=== PATIENT | male | born 1970 | race Caucasian/White ===

== ENCOUNTER 2016-11-19 10:50 | Day surgery (SDC) | payer OTHER ==
[~2016-11-19] VITALS: Ht 170.2 cm; Wt 72.6 kg
[2016-11-19] VITALS (10 sets, daily range): BP systolic 116–146; BP diastolic 74–83; PULSE 54–82; RESP 10–18; O2SAT 97–100
--- NOTE | 2016-11-19 07:37 | PCM.HPANE ---
Patient Data Surgeon Admitting Provider: Attending Provider:Skyla Doll MD Primary Care Physician:Ion Other Provider:Chen Sandoval Anesthesia Reason for Visit Left Ureteral Stone Ht/WT & BMI Height (Feet): 5 Height (Inches): 7 Weight (Kilograms): 77.564 Body Mass Index 26.00 Allergies Coded Allergies: No Known Allergies (Verified Allergy, Unknown, 11/18/16) Past Anesthesia History Anesthesia History: Denies:: Anesthesia Reactions, Malignant Hyperthermia Diabetes History Hx Diabetes?: No MRSA MRSA: No Medications Hypertension Medication: No Home Meds Incl Beta Lorena: No Reported Medications Acetaminophen 325 Mg [id number] Mg PO Q4H PRN For Headache Ref 0 11/19/16 Tamsulosin (Flomax)0.4 Mg Capsule0.4 Mg PO DAILY Ref 0 11/18/16 oxyCODONE-Acetaminophen 5-325 mg 1 Each Tablet2 Tab PO Q4H PRN For Pain Ref 0 11/18/16 Ondansetron (Zofran)8 Mg Tablet8 Mg PO Q8H PRN For Nausea 11/18/16 Discontinued Scripts [Oxycodone Hcl] (Roxycodone)5 MG TABLET No Conflict Check5 Mg PO Q4H PRN For Pain #40 TABLET Prov:Salvador Vasquez MD 11/14/14 History History of ENT Problems?: No Hx of Heart Problems?: No Cardiovascular History: Denies:: Heart Murmur Hypertension Hx of Respiratory Problem?: No Respiratory History: Denies:: Use of C-PAP Machine Hx Neurologic Problems?: No Hx of GI Problems?: Yes Gastrointestinal History: Positive for:: Gall Bladder Disease (S/P VITALY W/ UMBILICAL HERNIA RPR) Hx of Problems?: Yes Genitourinary History: Positive for:: Kidney Stones (HX OF PASSING 1 PRIOR STONE LT URETERAL STONE=CURRENT PROBLEM) Other Pertinent History: C/OF LT FLANK & GROIN PAIN,DECREASED URINARY STREAM Male Hx: Denies:: Prostate Problems Scrotal Mass Testicular Surgery Skin History: Denies:: History Skin Disorders? Pressure Ulcers Hx Musculoskeletal Problems?: Yes Musculoskeletal History: Positive for:: Back Injury (spinal injections in 2003 no problems since) Musculoskeletal Trauma (S/P B/L DISTAL BICEP TENDON RPR'S) Hx of Psycho/Social Problems?: No Hx Surgeries?: Yes (bilat distal bicep tendon repair,VITALY/UMBILICAL HERNIA RPR ,NIDIA'S) Hx Any Other Health Problems?: Yes Other History: Denies:: Cancer Endocrine Disease Hospitalization Thyroid Disease History Blood Transfusions: Denies:: Blood Transfusions Hx Diabetes: No Hx Alcohol Use: YesAlcoholic Drinks Per Day: 2-3/WEEKHx Substance Use: No Smoking Status: Never Smoker Have You Smoked inLast 12 mo: No Stop/Bang S-Snoring: Do You Snore Loudly: No T-Tired: feel tired, fatigued: No O-Obsered: Observed not breath: No P-Blood Pressure: treated: No B- Body Mass Index > 35 kg/m2: No N- Neck Large Circumference: No G- Gender Male: Yes SHAUNNA Risk Assessment: Low Risk, <3 Yes Risk Assessment Category Category 1A: Patient has history of documented sleep apnea, and HAS NOT received any narcotic, sedative or anesthesia administration during this stay. Category 1B: Patient has history of documented sleep apnea, and HAS received any narcotic , sedative or anesthesia administration during this stay Category 2: Patient has SUSPECTED Obstructive Sleep Apnea, and HAS received any narcotic , sedative or anesthesia administration during this stay. Category 3: Patient has SUSPECTED Obstructive Sleep Apnea and HAS NOT received narcotic, sedative or anesthesia administration during this stay. Category 4: Outpatient in Procedural Areas with known sleep apnea or who screen positive for High Risk via the STOP/BANG questionnaire. Exam Exam General Appearance: Alert, Oriented X3, Cooperative, No Acute Distress HEENT/AIRWAY: MP 1 Lungs: Normal Air Movement Heart: Exam Unremarkable Plan Impression Patient chart reviewed, patient interviewed and anesthestic plan with risks, benefits, and alternatives discussed, and informed consent obtained. NPO Status: 11/13/14 0430 ASA Physical Status: ASA1 Normal Healthy Anesthetic Plan: GA Bene/Risks/Altern/Consents: Yes HP Complete Prior to Induction: Yes Rafal Washington MD Nov 19, 2016 07:37
[2016-11-19] MEDS: Lactated Ringer's 1,000 ML IV SCH ×3 (09:40→13:28)
[~2016-11-19 10:50] MED LIST: CeFAZolin 2 Gm/50 mL D5W IV Premix IV ONE; OXYC1TAB24 PO; TAMS0.4C98 PO; ZOF8 PO
[2016-11-19] MEDS ORDERED: Rocuronium 10 mg/mL 5 mL Inj ONE (10:51)
[2016-11-19] MEDS ORDERED: Dexamethasone 4 mg/mL Inj ONE (10:51)
[2016-11-19] MEDS ORDERED: Ondansetron 2 mg/mL 2 mL Inj ONE (10:51)
[2016-11-19] MEDS ORDERED: Glycopyrrolate 0.2 mg/mL 5 mL Inj ONE (10:51)
[2016-11-19] MEDS ORDERED: Neostigmine 1 mg/mL 5 mL Inj ONE (10:51)
[2016-11-19] MEDS ORDERED: fentaNYL-PF 50 mCg/mL 2 mL Inj ONE ×2 (10:51→11:44)
[2016-11-19] MEDS ORDERED: Propofol 10,000 mCg/mL 20 mL Inj ONE (10:51)
[2016-11-19] MEDS ORDERED: ACET325T51 PO (11:05)
[2016-11-19] MEDS ORDERED: CeFAZolin 2 Gm/50 mL D5W Duplex Bag IV ONE (11:09)
[2016-11-19] MEDS ORDERED: HYDROmorphone 0.5 mg/0.5 mL iSecure Syringe IVPUSH PRN (11:50)
[2016-11-19] MEDS ORDERED: fentaNYL-PF 50 mCg/mL 2 mL Inj IVPUSH PRN ×2 (11:50→13:25)
[2016-11-19] MEDS ORDERED: Lactated Ringer's 500 ML IV PRN (13:21)
[2016-11-19] MEDS ORDERED: Lactated Ringer's 1,000 ML IV SCH (13:21)
[2016-11-19] MEDS ORDERED: EPHEDrine Sulfate 50 mg/mL Inj IVPUSH PRN (13:25)
[2016-11-19] MEDS ORDERED: Phenylephrine 10,000 mCg/mL Inj IVPUSH PRN (13:25)
[2016-11-19] MEDS ORDERED: Ondansetron 2 mg/mL 2 mL Inj IVPUSH PRN (13:25)
[2016-11-19] MEDS ORDERED: MetoCLOpramide 5 mg/mL 2 mL Inj IVPUSH PRN (13:25)
[2016-11-19] MEDS ORDERED: Dexamethasone 4 mg/mL Inj IVPUSH PRN (13:25)
[2016-11-19] MEDS ORDERED: HYDROmorphone 1 mg/mL Inj IVPUSH PRN (13:25)
[2016-11-19] MEDS ORDERED: Albuterol-Ipratropium 3 mL Inhalation Solution NEB PRN (13:25)
[2016-11-19] MEDS ORDERED: Belladonna Alk-Opium 60 mg Rectal Suppository RECTAL ONE ×2 (14:05→14:06)
[2016-11-19] MEDS ORDERED: Ondansetron 8 mg ODT Tablet PO PRN (14:30)
[2016-11-19] MEDS ORDERED: HYDROcodone-APAP 5-325 mg Tablet PO PRN (14:30)
--- NOTE | 2016-11-19 14:30 | PCM.ANEP1 ---
Post Anesthesia Phase 1 PACU Phase 1 Assessment Vital Signs see anesthesia record Vital Signs Date Time Temp Pulse Resp B/P Pulse Ox O2 Delivery O2 Flow Rate FiO2 11/19/16 11:30 36.3 67 18 138/80 97 Room Air Anesthetic Administered: GA Level of Alertness: Sleeping, hard to arouse LANGLEY's with Equal Strength: Yes Pain: No Nausea or Vomiting: No Oxygen Delivery: Room Air Lungs: Normal Air Movement Rafal Washington MD Nov 19, 2016 14:30
--- NOTE | 2016-11-19 15:20 | PCM.ANEP2 ---
Post Anesthesia Evaluation ASA/CMS Post Anesthesia VS in Patient's Normal Range?: Yes Resp Stable; Airway Patent?: Yes CV Function & Hydration Stable: Yes Mental Status Recovered?: Yes Pain control Satisfactory?: Yes N/V Control Satisfactory?: Yes Rafal Washington MD Nov 19, 2016 15:20
--- NOTE | 2016-11-21 00:46 | OP ---
[address] [address] OPERATIVE REPORT PATIENT: IVY SANTAMARIA : 1970 MR#: [id number] ADMIT: 11/19/2016 JOB ID: [id number] DATE OF SURGERY: 11/19/2016 PREOPERATIVE DIAGNOSIS(ES): The patient is a 46-year-old gentleman with a 7-10 day history of severe left flank pain, evaluation showing a proximal 5-6 mm ureteral calculus. Failing to progress with medical expulsive therapy, and desiring surgical treatment. Discussed treatment options, and he wished to proceed with ureteroscopic stone extraction if possible. POSTOPERATIVE DIAGNOSIS(ES): The patient is a 46-year-old gentleman with a 7-10 day history of severe left flank pain, evaluation showing a proximal 5-6 mm ureteral calculus. Failing to progress with medical expulsive therapy, and desiring surgical treatment. Discussed treatment options, and he wished to proceed with ureteroscopic stone extraction if possible. PROCEDURE: Cystoscopy with left-sided ureteroscopy, laser lithotripsy, basket stone extraction and left-sided double-J stent placement. SURGEON: Skyla Doll MD ANESTHESIA: General PROCEDURE IN DETAIL: After appropriate informed consent was obtained, the patient was brought to the operating room. He received IV antibiotics prior to onset of the procedure. SCDs were placed. Adequate general anesthesia induced. He was carefully placed in dorsal lithotomy position. All pressure points were carefully padded. Cleaned, prepped, and draped in the usual sterile fashion. Rigid scope was introduced in the patient's bladder which was surveyed and found to be normal in appearance. There was decreased efflux from the left ureteral orifice. The bladder was grossly normal in appearance. A 6-Swiss ureteral catheter was introduced into the ureteral orifice which was quite small, requiring a wire to advance over. Retrograde pyelogram revealed some dilation proximally. No clear filling defect. Given the small size of the ureteral orifice, we used a 14-Swiss outer diameter balloon to dilate the ureteral orifice. Then, we were able to take the rigid scope and advanced it up to mid ureter. No stone was encountered up to this point. We then removed the rigid scope and used our safety wire to advance a dual-lumen catheter for a 2nd wire up into good position fluoroscopically in the renal pelvis. We then advanced a 35 cm, 15-Swiss outer diameter ureteral access sheath over the 2nd wire, leaving the 1st wire there as a safety wire. We then advanced the flexible ureteroscope up into the patient's kidney. The upper poles were inspected first, and then a separate large branching lower pole long carin was inspected and the stone itself was found back there, likely pushed back up with the retrograde pyelogram. We used a 200 micron laser fiber to break the stone up into small pieces, 1-2 mm in size. Each piece was retrieved with a basket and handed off for stone analysis. Once the carin itself was cleared, we cleared the ureter itself while removing the access sheath. The safety wire was then used to backload through the rigid ureteroscope and a 6-Swiss x 26 cm double-J stent was placed over the wire under fluoroscopic and direct visual guidance into good position. The string was left long outside the patient. There was mild hematuria which was irrigated out. The patient tolerated the procedure well. Was given a B and O suppository for postop comfort and a dose of Toradol, awakened and taken in stable condition to the postanesthesia care unit.
[2016-11-26 14:10] LABS: Stone Color Brown (.)
== END 2016-11-19 23:59 | disposition home or self-care (01) ==
LOC: SAS 10:50
PROVIDERS: ATTEND Urology
PROC: 0T778DZ Dilation of Left Ureter with Intraluminal Device, Via Natural or Artificial Opening Endoscopic (ICD-10-PCS; 2016-11-19)
PROC: 0TC78ZZ Extirpation of Matter from Left Ureter, Via Natural or Artificial Opening Endoscopic (ICD-10-PCS; principal; 2016-11-19 12:30)
DX: N20.1 Calculus of ureter (principal)
CPT/HCPCS: 52356; 74420; 82360; C2617; J0690; J1100; J2250; J2405; J2710; J7120; Q9967